=== PATIENT | female | born 1995 | race Two or more races ===

== ENCOUNTER 2018-10-13 12:03 | Emergency (ER) | payer OTHER ==
--- NOTE | 2018-10-13 12:32 | PDOC ---
Rapid Medical Evaluation Time Seen by Provider: 10/13/18 12:30 Medical Evaluation: Allergies Allergy/AdvReac Type Severity Reaction Status Date / Time amoxicillin Allergy Verified 05/08/18 13:43 10/13/18 12:30 I performed a brief in-person evaluation of this patient. Chief complaint is: Left eye pain Pertinent physical exam findings include: Left sclera/conjunctiva injected I have ordered the following: None Patient will proceed to the ED for further evaluation. Discharge Disposition - Diagnosis Left eye pain - Referrals - Patient Instructions - Post Discharge Activity
[2018-10-13 12:34] VITALS: BP 118/81; PULSE 79; TEMP 98.6; BMI 28.5
--- NOTE | 2018-10-13 13:41 | PDOC ---
History of Present Illness - General Chief Complaint: Eye Problem Stated Complaint: EYE PROBLEM Time Seen by Provider: 10/13/18 12:30 - History of Present Illness Initial Comments: 10/13/18 13:38 22-year-old female without comorbidities presents for evaluation of bilateral eye irritation left greater than right 3 weeks. Past History - Past Medical History Allergies/Adverse Reactions: Allergies Allergy/AdvReac Type Severity Reaction Status Date / Time amoxicillin Allergy Verified 05/08/18 13:43 Home Medications: Ambulatory Orders Tobramycin 0.3% Ophth Soln [Tobrex Ophthalmic Solution -] 1 drop OU Q4HWA #1 bottle 10/13/18 COPD: No Hypercholesterolemia: No - Surgical History Cholecystectomy: No - Immunization History Immunization Up to Date: No - Suicide/Smoking/Psychosocial Hx Smoking History: Never smoked Have you smoked in the past 12 months: No Number of Cigarettes Smoked Daily: 1 Information on smoking cessation initiated: No Hx Alcohol Use: No Drug/Substance Use Hx: No Review of Systems - Review of Systems HEENTM: Yes: See HPI, Eye Pain, Tearing *Physical Exam - Vital Signs Last Vital Signs Temp Pulse Resp BP Pulse Ox 98.6 F 79 18 118/81 100 10/13/18 12:31 10/13/18 12:31 10/13/18 12:31 10/13/18 12:31 10/13/18 12:31 - Physical Exam Comments: 10/13/18 13:39 HEAD: NC/AT EYES: Conjuntiva erythemic left greater than right crusting on the left eyelashes MS: Full ROM in all joints without edema NEUROLOGIC: No gross sensory or motor deficits, NVID SKIN: Normal color and temperature no lesions or rashes Moderate Sedation - Procedure Monitoring Vital Signs: Procedure Monitoring Vital Signs Temperature 98.6 F 10/13/18 12:31 Pulse Rate 79 10/13/18 12:31 Respiratory Rate 18 10/13/18 12:31 Blood Pressure 118/81 10/13/18 12:31 O2 Sat by Pulse Oximetry (%) 100 10/13/18 12:31 *DC/Admit/Observation/Transfer Diagnosis at time of Disposition: Left eye pain, Acute conjunctivitis, bilateral - Discharge Dispostion Disposition: HOME Condition at time of disposition: Stable Decision to Admit order: No - Prescriptions Prescriptions: Tobramycin 0.3% Ophth Soln [Tobrex Ophthalmic Solution -] 1 drop OU Q4HWA #1 bottle - Referrals Referrals: Mihaela Pritchard MD [Staff Physician] - Gera Persaud MD [Non Staff, Medical] - Delmar Dahl [Non Staff, Medical] - Heriberto Pastor DO [Non Staff, Medical] - Cam Tam MD [Non Staff, Medical] - - Patient Instructions Printed Discharge Instructions: Conjunctivitis Additional Instructions: Please use the antibiotics as directed. Return to the emergency room should symptoms worsen or go unresolved. Please follow-up with ophthalmology in one to 2 days for further evaluation and treatment options. - Post Discharge Activity
== END 2018-10-13 13:50 | disposition home or self-care (01) ==
LOC: JERFT 12:03
DX: H57.12 Ocular pain, left eye (principal); H10.33 Unspecified acute conjunctivitis, bilateral
CPT/HCPCS: 99281-25